=== PATIENT | female | born 1990 | race Caucasian/White ===

== ENCOUNTER 2018-07-19 22:00 | Emergency (ER) | payer BC, OTHER ==
[2018-07-19] MEDS ORDERED: Cyclobenzaprine 10 MG Tab PO ONE (22:01)
[2018-07-19] MEDS ORDERED: Acetaminophen/oxyCODONE 325-5 MG Tab PO ONE ×2 (22:01)
--- NOTE | 2018-07-19 22:25 | EDM.PDOC ---
ED HPI GENERAL MEDICAL PROBLEM - General Chief Complaint: Back Pain or Injury Stated Complaint: BACK PAIN [id number] Time Seen by Provider: 07/19/18 22:15 Source of Information: Reports: Patient, RN, RN Notes Reviewed History Limitations: Reports: No Limitations - History of Present Illness INITIAL COMMENTS - FREE TEXT/NARRATIVE: Pt to ER with c/o pain to the right mid back, under the rib cage. She states she bent over this morning and had a sudden, sharp pain. She states the pain is worse with deep breathing and movement. She states she has tried to stretch, but this is painful. She states she gets nauseated at times with the pain, and her body is shaking with pain. Patient denies fever, vomiting. She denies urgency or burning with urination. She states some frequency but she states she had a baby about 7 months ago and this has been normal since then. She states she does carry around a 17 pound baby, but no other lifting, shoveling, repetitive movement. She states there is history of kidney stones in her family. Rates pain 12/14. Onset: Today, Sudden Duration: Getting Worse Location: Reports: Back Quality: Reports: Ache, Sharp, Stabbing Severity: Moderate Improves with: Reports: None Right Flank Pain Score (Numeric/FACES): 7 - Related Data Home Meds: Home Meds IKT320/Iron Fumarate/FA/DSS [ 19 Tablet] 1 each PO 07/19/18 [History] ED ROS GENERAL - Review of Systems Review Of Systems: ROS reveals no pertinent complaints other than HPI. ED EXAM,LOWER BACK PAIN/INJURY - Physical Exam Exam: See Below Exam Limited By: No Limitations General Appearance: Alert, WD/WN, Moderate Distress Eye Exam: Bilateral Eye: EOMI, Normal Inspection Ears: Normal External Exam, Hearing Grossly Normal Nose: Normal Inspection Throat/Mouth: Normal Inspection, Normal Voice, No Airway Compromise Head: Atraumatic, Normocephalic Neck: Normal Inspection, Supple, Non-Tender, Full Range of Motion Respiratory/Chest: No Respiratory Distress, Lungs Clear, Normal Breath Sounds, No Accessory Muscle Use, Chest Non-Tender Cardiovascular: Normal Peripheral Pulses, Regular Rate, Rhythm, No Edema, No Gallop, No JVD, No Murmur, No Rub GI/Abdominal: Normal Bowel Sounds, Soft, Non-Tender, No Organomegaly, No Distention, No Abnormal Bruit, No Mass, Pelvis Stable (Female) Exam: Deferred Rectal (Female) Exam: Deferred Back Exam: Normal Inspection, Decreased Range of Motion, Muscle Spasm, Paraspinal Tenderness Extremities: Normal Inspection, Normal Range of Motion, Non-Tender, No Pedal Edema, Normal Capillary Refill Neurological: Alert, Normal Mood/Affect, Normal Dorsiflexion, CN II-XII Intact, Normal Plantar Flexion, Normal Gait, Normal Reflexes, No Motor/Sensory Deficits , Oriented x 3 Psychiatric: Anxious, Tearful Skin Exam: Warm, Dry, Intact, Normal Color, No Rash Lymphatic: No Adenopathy Course - Vital Signs Last Recorded V/S: Last Vital Signs Temp 97.6 F 07/19/18 22:17 Pulse 78 07/19/18 22:17 Resp 16 07/19/18 22:17 BP 128/74 07/19/18 22:17 Pulse Ox 99 07/19/18 22:17 - Orders/Labs/Meds Orders: Active Orders 24 hr Category Date Time Status CULTURE URINE [RM] Stat Lab 07/19/18 22:27 Received Orphenadrine [Norflex] Med 07/19/18 22:45 Active 60 mg IM Q12H Medication Orders Orphenadrine Citrate (Norflex) 60 mg IM Q12H MOLINA Last Admin: 07/19/18 22:45 Dose: 60 mg Labs: Laboratory Tests 07/19/18 07/19/18 Range/Units 22:27 22:27 Urine Color Yellow (YELLOW) Urine Appearance Slightly cloudy (CLEAR) Urine pH 5.5 (5.0-9.0) Ur Specific [place] 1.010 (1.005-1.030) Urine Protein Negative (NEGATIVE) Urine Glucose (UA) Negative (NEGATIVE) Urine Ketones Negative (NEGATIVE) Urine Occult Blood Moderate H (NEGATIVE) Urine Nitrite Negative (NEGATIVE) Urine Bilirubin Negative (NEGATIVE) Urine Urobilinogen 0.2 (0.2-1.0) mg/dL Ur Leukocyte Esterase Trace H (NEGATIVE) Urine RBC 40-50 H /HPF Urine WBC 5-10 H (0-5/HPF) /HPF Ur Epithelial Cells Few /HPF Urine Bacteria Few (0-FEW/HPF) /HPF Urine Mucus Rare /LPF Urine HCG, Qual Negative Meds: Medications Generic Name Dose Route Start Last Admin Trade Name Freq PRN Reason Stop Dose Admin Orphenadrine Citrate 60 mg 07/19/18 22:45 07/19/18 22:45 Norflex IM 60 mg Q12H MOLINA Administration Departure - Departure Time of Disposition: 23:30 Disposition: Home, Self-Care 01 Condition: Fair Clinical Impression: Muscle spasm - Discharge Information *PRESCRIPTION DRUG MONITORING PROGRAM REVIEWED*: No *COPY OF PRESCRIPTION DRUG MONITORING REPORT IN PATIENT VASHTI: No Instructions: Muscle Strain, [id number], Heat Therapy, [id number], Back Pain, Adult, [id number], Muscle Cramps and Spasms, [id number] Forms: ED Department Discharge Additional Instructions: Drink plenty of water RX: Flexeril, Norflex Take Ibuprofen as directed for pain Follow up with your primary care facility may use heat to the area as tolerated - My Orders Last 24 Hours: My Active Orders 07/19/18 22:27 CULTURE URINE [RM] Stat 07/19/18 22:45 Orphenadrine [Norflex] 60 mg IM Q12H - Assessment/Plan Last 24 Hours: My Active Orders 07/19/18 22:27 CULTURE URINE [RM] Stat 07/19/18 22:45 Orphenadrine [Norflex] 60 mg IM Q12H
[2018-07-20] MEDS: Acetaminophen/oxyCODONE 325-5 MG Tab ONE (00:01)
[2018-07-20] MEDS: Cyclobenzaprine 10 MG Tab ONE (00:01)
== END 2018-07-20 00:05 | disposition home or self-care (01) ==
LOC: DL.ED 22:00
DX: M62.838 Other muscle spasm (principal)
CPT/HCPCS: 81001; 81025; 87086; 96372; 99284; A9270; J2360

== ENCOUNTER 2018-07-20 15:45 | Emergency (ER) | payer BC ==
[2018-07-20] MEDS: Sodium Chloride 0.9% 1,000 ML IV ONE (16:10)
[2018-07-20 16:26] LABS: ANION GAP 12.8; CHLORIDE,CL 102 mmol/L (101-111); SODIUM,NA 133 mmol/L (135-145)
--- NOTE | 2018-07-20 17:01 | EDM.PDOC ---
Scribed by Neeta Mejia 07/20/18 [id number] for Luiz Dawson PA ED HPI GENERAL MEDICAL PROBLEM - General Chief Complaint: Back Pain or Injury Stated Complaint: BACK PAIN,LOW BLOOD PRESSURE Time Seen by Provider: 07/20/18 16:00 Source of Information: Reports: Patient, RN, RN Notes Reviewed History Limitations: Reports: No Limitations - History of Present Illness INITIAL COMMENTS - FREE TEXT/NARRATIVE: Patient presents to ER with increased right side pain that started yesterday morning. She was seen last night in ED and given Norflex in ED. She was sent home with Flexeril and Percocet. She took her last Percocet at 1145 today. She has had several syncopal episodes before appointment with [facility]. She had a previous episode after a spinal. She has back pain. She is having her menstrual cycle now. Onset Date: 07/19/18 Duration: Constant Location: Reports: Back Quality: Reports: Ache Severity: Moderate Improves with: Reports: None Worsens with: Reports: Movement Associated Symptoms: Reports: No Other Symptoms - Related Data Allergies Allergy/AdvReac Type Severity Reaction Status Date / Time nickel Allergy Hives Verified 07/20/18 16:24 Home Meds: Home Meds CPC702/Iron Fumarate/FA/DSS [ 19 Tablet] 1 each PO DAILY 07/19/18 [ History] Acetaminophen/oxyCODONE [Percocet 325-5 MG] 1 tab PO Q6H 07/20/18 [History] Cholecalciferol (Vitamin D3) [Vitamin D] 5,000 unit PO DAILY 07/20/18 [History] Cyclobenzaprine [Flexeril] 10 mg PO DAILY 07/20/18 [History] Ibuprofen [Motrin] 800 mg PO Q8H 07/20/18 [History] Past Medical History - Past Health History Medical/Surgical History: Denies Medical/Surgical History Social & Family History - Family History Family Medical History: Noncontributory - Caffeine Use Caffeine Use: Reports: None ED ROS GENERAL - Review of Systems Review Of Systems: ROS reveals no pertinent complaints other than HPI. ED EXAM,LOWER BACK PAIN/INJURY - Physical Exam Exam: See Below Exam Limited By: No Limitations General Appearance: Alert, WD/WN, No Apparent Distress Eye Exam: Bilateral Eye: EOMI, Normal Inspection, PERRL Ears: Normal External Exam, Normal Canal, Hearing Grossly Normal, Normal TMs Nose: Normal Inspection, Normal Mucosa, No Blood Throat/Mouth: Normal Inspection, Normal Lips, Normal Teeth, Normal Gums, Normal Oropharynx, Normal Voice, No Airway Compromise Head: Atraumatic, Normocephalic Neck: Normal Inspection, Supple, Non-Tender, Full Range of Motion Respiratory/Chest: No Respiratory Distress, Lungs Clear, Normal Breath Sounds, No Accessory Muscle Use, Chest Non-Tender Cardiovascular: Normal Peripheral Pulses, Regular Rate, Rhythm, No Edema, No Gallop, No JVD, No Murmur, No Rub GI/Abdominal: Normal Bowel Sounds, Soft, Non-Tender, No Organomegaly, No Distention, No Abnormal Bruit, No Mass (Female) Exam: Deferred Rectal (Female) Exam: Deferred Back Exam: Other (Back pain right worse than left. ) Extremities: Normal Inspection, Normal Range of Motion, Non-Tender, No Pedal Edema, Normal Capillary Refill Neurological: Alert, Normal Mood/Affect, Normal Dorsiflexion, CN II-XII Intact, Normal Plantar Flexion, Normal Gait, Normal Reflexes, No Motor/Sensory Deficits , Oriented x 3 Skin Exam: Warm, Dry, Intact, Normal Color, No Rash Course - Vital Signs Last Recorded V/S: Last Vital Signs Temp 36.9 C 07/20/18 16:22 Pulse 57 L 07/20/18 16:22 Resp 16 07/20/18 16:22 BP 115/73 07/20/18 16:22 Pulse Ox 100 07/20/18 16:22 - Orders/Labs/Meds Orders: Active Orders 24 hr Category Date Time Status EKG Documentation Completion [RC] URGENT Care 07/20/18 16:06 Active Labs: Laboratory Tests 07/20/18 07/20/18 Range/Units 15:57 15:57 WBC 9.5 (5.0-10.0) 10^3/uL RBC 4.53 (4.2-5.4) 10^6/uL Hgb 14.0 (12.0-16.0) g/dL Hct 42.1 (37.0-47.0) % MCV 92.9 (80-100) fL MCH 30.9 (27.0-34.0) pg MCHC 33.3 (33.0-35.0) g/dL Plt Count 289 (150-450) 10^3/uL Neut % (Auto) 68.3 (42.2-75.2) % Lymph % (Auto) 21.9 (20.5-50.1) % Kay % (Auto) 7.9 (2-8) % Eos % (Auto) 1.5 (1.0-3.0) % Baso % (Auto) 0.4 (0.0-1.0) % Sodium 133 L (135-145) mmol/L Potassium 3.8 (3.6-5.0) mmol/L Chloride 102 (101-111) mmol/L Carbon Dioxide 22.0 (21.0-31.0) mmol/L Anion Gap 12.8 BUN 12 (7-18) mg/dL Creatinine 0.7 (0.6-1.3) mg/dL Est Cr Clr Drug Dosing 123.93 mL/min Estimated GFR (MDRD) > 60 BUN/Creatinine Ratio 17.14 Glucose 100 (74-105) mg/dL Calcium 8.7 (8.4-10.2) mg/dl Total Bilirubin 1.0 (0.2-1.0) mg/dL AST 22 (10-42) IU/L ALT 13 (10-60) IU/L Alkaline Phosphatase 50 (42-121) IU/L Troponin I < 0.02 (0.00-0.02) ng/ml Total Protein 7.5 (6.7-8.2) g/dl Albumin 4.0 (3.2-5.5) g/dl Globulin 3.5 Albumin/Globulin Ratio 1.14 Meds: Medications Discontinued Medications Generic Name Dose Route Start Last Admin Trade Name Freq PRN Reason Stop Dose Admin Sodium Chloride 1,000 mls @ 999 mls/hr 07/20/18 16:00 07/20/18 16:10 Normal Saline IV 07/20/18 17:00 999 mls/hr .BOLUS ONE Administration Methylprednisolone Sodium Succinate 40 mg 07/20/18 17:45 Solu-Medrol IVPUSH 07/20/18 17:46 ONETIME ONE - Re-Assessments/Exams Free Text/Narrative Re-Assessment/Exam: 07/20/18 17:[address] was ordered for the patient, but the patient did not want to go to CT without all labs being reported to her. The patient was given the lab results and agreed to go to have a CT scan. 07/20/18 17:47 CT results were received from Dr. Rodriguez. No kidney stones, no apparent bulging discs, no spinal abnormalities. Normal CT of the abdomen and pelvis. Departure - Departure Time of Disposition: 17:48 Disposition: Home, Self-Care 01 Condition: Fair Clinical Impression: Low back strain Qualifiers: Encounter type: initial encounter Qualified Code(s): S39.012A - Strain of muscle, fascia and tendon of lower back, initial encounter - Discharge Information *PRESCRIPTION DRUG MONITORING PROGRAM REVIEWED*: Not Applicable *COPY OF PRESCRIPTION DRUG MONITORING REPORT IN PATIENT VASHTI: Not Applicable Instructions: Muscle Strain, [id number], Back Pain, Adult, [id number]-[id number] Forms: ED Department Discharge Care Plan Goals: The patient was advised of the examination, lab and CT results during the visit. The patient was given IV fluids and an IV dose of SoluMedrol during the visit in the ED. The patient was encouraged to avoid taking the pain medications and the muscle relaxers. The patient was discharged with a script for Prednisone (20 mg) #10 to take 2 by mouth daily for 5 days. If the patient has any additional symptoms or concerns, the patient should either visit her primary care facility or return to the emergency department. - My Orders Last 24 Hours: My Active Orders 07/20/18 16:06 EKG Documentation Completion [RC] URGENT - Assessment/Plan Last 24 Hours: My Active Orders 07/20/18 16:06 EKG Documentation Completion [RC] URGENT I have read and agree with the documentation that has been completed regarding this visit. By signing this record, I attest that the documentation was completed in my physical presence and is an accurate record of the encounter.
--- NOTE | 2018-07-20 17:42 | CT ---
Clinical history: 27-year-old female with menses and "hematuria" complaining of low back pain (right greater than left). Scan technique: Volume acquisition of data emergency unenhanced CT scan of the abdomen and pelvis (kidneys/ureters/bladder) obtained while the patient was lying supine on the Siemens multislice scanner [place], [place]. All data archived in the PACS system for storage, reformatting axial/sagittal/coronal planes and study. Interpretation: 1. Normal appendix identified RLQ (all planes). No calcified appendicoliths, inflammatory mass, periappendiceal inflammation. 2. Homogeneous normal bone density and normal height/alignment of the lumbar vertebra. No current evidence lumbar disc disease or hypertrophic arthritis. No lumbar fracture or spondylolisthesis (dislocation). 3. Normal caliber aortoiliac vessels. No aneurysm or retroperitoneal periaortic dissection. 4. Gallbladder, unenhanced liver, stomach, spleen and pancreas unremarkable. 5. Symmetric normal-appearing kidneys without sign of nephrolithiasis or significant pyelocaliectasis/ureterectasis. Punctate phlebolith-like radiopacities lower pelvis, on the left. Symmetrically distended urinary bladder without intraluminal calculus. 6. Anteverted uterus midline and unremarkable. No pelvic or abdominal mass lesion. 7. Lung bases clear. CONCLUSION: Negative exam.
[2018-07-20] MEDS: methylPREDNISolone Sodium Succinate 40 MG/1 ML SDV IVPUSH ONE (18:00)
== END 2018-07-20 18:20 | disposition home or self-care (01) ==
LOC: DL.ED 15:45
DX: S39.012A Strain of muscle, fascia and tendon of lower back, initial encounter (principal); Z91.09 Other allergy status, other than to drugs and biological substances; X58.XXXA Exposure to other specified factors, initial encounter
CPT/HCPCS: 36415; 74176; 80053; 84484; 85025; 93005; 96361; 96374; 99284; J2920; J7030

== ENCOUNTER 2020-10-13 07:54 | Emergency (ER) | payer BC ==
--- NOTE | 2020-10-13 08:07 | EDM.PDOC ---
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 0700HRS this morning. Pt states she is approx. 6 weeks . She denies pain at this time. Bleeding has been light with passage of one clot and some mucus covered blood or tissue. Onset: Today Duration: Constant Location: Reports: Other ( related) Quality: Reports: Other (Cramps) Severity: Mild Improves with: Reports: None Worsens with: Reports: None Associated Symptoms: Reports: No Other Symptoms - Related Data Allergies Allergy/AdvReac Type Severity Reaction Status Date / Time nickel Allergy Hives Verified 07/20/18 16:24 Home Meds: Home Meds Prenat 115/Iron Fum/Folic/Dss [ 19 Tablet] 1 each PO DAILY 07/19/18 [History] Past Medical History - Past Health History Medical/Surgical History: Denies Medical/Surgical History HEENT History: Reports: Impaired Vision Cardiovascular History: Reports: None Respiratory History: Reports: None Gastrointestinal History: Reports: None Genitourinary History: Reports: None 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: Musculoskeletal History: Reports: None Neurological History: Reports: None Psychiatric History: Reports: None Endocrine/Metabolic History: Reports: None Hematologic History: Reports: None Immunologic History: Reports: None Oncologic (Cancer) History: Reports: None Dermatologic History: Reports: None - Infectious Disease History Infectious Disease History: Reports: None - Past Surgical History Head Surgeries/Procedures: Reports: None Social & Family History - Family History Family Medical History: No Pertinent Family History - Caffeine Use Caffeine Use: Reports: None - Living Situation & Occupation Living situation: Reports: , with Family ED ROS GENERAL - Review of Systems Review Of Systems: Comprehensive ROS is negative, except as noted in HPI. ED EXAM - Physical Exam Exam: See Below Exam Limited By: No Limitations General Appearance: Alert, WD/WN, No Apparent Distress Throat/Mouth: Normal Inspection Head: Atraumatic, Normocephalic Neck: Normal Inspection Respiratory/Chest: No Respiratory Distress, Lungs Clear, Normal Breath Sounds, No Accessory Muscle Use, Chest Non-Tender Cardiovascular: Normal Peripheral Pulses, Regular Rate, Rhythm, No Edema, No Gallop, No JVD, No Murmur, No Rub GI/Abdominal Exam: Normal Bowel Sounds, Soft, Non-Tender, No Organomegaly, No Distention, No Abnormal Bruit, No Mass, Pelvis Stable Rectal Exam: Deferred (Female) Exam: Other (Deferred) Back Exam: Normal Inspection Extremities: Normal Inspection, Normal Range of Motion, Non-Tender, No Pedal Edema, Normal Capillary Refill. No: Daya's Sign Neurological: Alert, Oriented, CN II-XII Intact, Normal Cognition, Normal Gait, No Motor/Sensory Deficits Psychiatric: Normal Affect, Normal Mood Skin Exam: Warm, Dry, Intact, Normal Color, No Rash Course - Vital Signs Last Recorded V/S: Last Vital Signs Temp 98 F 10/13/20 08:10 Pulse 70 10/13/20 08:10 Resp 18 10/13/20 08:10 BP 118/72 10/13/20 08:10 Pulse Ox 100 10/13/20 08:10 - Orders/Labs/Meds Orders: Active Orders 24 hr Category Date Time Status RH IMMUNE GLOBULIN [BBK] Stat Lab 10/13/20 08:15 Results RHOGAM, MISCARRIAGE [RHIG WORKUP, MISCARRIAGE] [BBK] Lab 10/13/20 08:15 Results Stat RHOGAM given in ER. Labs: Laboratory Tests 10/13/20 10/13/20 10/13/20 Range/Units 08:15 08:15 08:15 WBC 8.4 (5.0-10.0) 10^3/uL RBC 4.41 (4.2-5.4) 10^6/uL Hgb 13.5 (12.0-16.0) g/dL Hct 41.0 (37.0-47.0) % MCV 93.0 (80-100) fL MCH 30.6 (27.0-34.0) pg MCHC 32.9 L (33.0-35.0) g/dL Plt Count 315 (150-450) 10^3/uL Neut % (Auto) 65.1 (42.2-75.2) % Lymph % (Auto) 26.8 (20.5-50.1) % [place] % (Auto) 6.6 (2-8) % Eos % (Auto) 1.0 (1.0-3.0) % Baso % (Auto) 0.5 (0.0-1.0) % HCG, Quant 154 H (0-6) mIU/mL Urine Color (YELLOW) Urine Appearance (CLEAR) Urine pH (5.0-9.0) Ur Specific [place] (1.005-1.030) Urine Protein (NEGATIVE) Urine Glucose (UA) (NEGATIVE) Urine Ketones (NEGATIVE) Urine Occult Blood (NEGATIVE) Urine Nitrite (NEGATIVE) Urine Bilirubin (NEGATIVE) Urine Urobilinogen (0.2-1.0) mg/dL Ur Leukocyte Esterase (NEGATIVE) Urine RBC /HPF Urine WBC (0-5/HPF) /HPF Ur Epithelial Cells (NOT SEEN) /HPF Urine Bacteria (0-FEW/HPF) /HPF Blood Type (Referred) Blood Type O NEGATIVE Rhogam Indicated Blood Bank Comment 10/13/20 10/13/20 Range/Units 08:15 08:33 WBC (5.0-10.0) 10^3/uL RBC (4.2-5.4) 10^6/uL Hgb (12.0-16.0) g/dL Hct (37.0-47.0) % MCV (80-100) fL MCH (27.0-34.0) pg MCHC (33.0-35.0) g/dL Plt Count (150-450) 10^3/uL Neut % (Auto) (42.2-75.2) % Lymph % (Auto) (20.5-50.1) % [place] % (Auto) (2-8) % Eos % (Auto) (1.0-3.0) % Baso % (Auto) (0.0-1.0) % HCG, Quant (0-6) mIU/mL Urine Color Yellow (YELLOW) Urine Appearance Slightly cloudy (CLEAR) Urine pH 7.0 (5.0-9.0) Ur Specific [place] 1.015 (1.005-1.030) Urine Protein Negative (NEGATIVE) Urine Glucose (UA) Negative (NEGATIVE) Urine Ketones Negative (NEGATIVE) Urine Occult Blood Large H (NEGATIVE) Urine Nitrite Negative (NEGATIVE) Urine Bilirubin Negative (NEGATIVE) Urine Urobilinogen 0.2 (0.2-1.0) mg/dL Ur Leukocyte Esterase Negative (NEGATIVE) Urine RBC 30-40 H /HPF Urine WBC 0-5 (0-5/HPF) /HPF Ur Epithelial Cells Few (NOT SEEN) /HPF Urine Bacteria Rare (0-FEW/HPF) /HPF Blood Type (Referred) O neg Blood Type Rhogam Indicated Yes Blood Bank Comment Dln - Radiology Interpretation Free Text/Narrative:: [facility] [place] [facility] Final Radiology Report Call: [phone] assistance Online chat: [email or web address] Name: SHARON GOMEZ Age: 29Years F Date: 10/13/2020 SSN: -- : [id number] Study: US OB 1ST TRI SGL 1ST GEST Requesting Physician: CAMILLE ESQUIVEL Images: 19 Addl Studies: Provided Clinical History: Vag. bleeding, LMP 09/01/20, ,0-0, L2 Contrast: Without Contrast Medium: Contrast Amount: Contrast Method: Page 1 of 2 PROCEDURE INFORMATION: Exam: US , Transvaginal Exam date and time: 10/13/2020 8:53 AM Age: 29 years old Clinical indication: Lmp or gestational age (in weeks): N/a; Antepartum complications; Bleeding; Patient HX: PT states she had a pos home preg test in September 2020. ; Additional info: Vag. Bleeding, lmp 09/01/20, ,0-0, l2 TECHNIQUE: Imaging protocol: Real-time transvaginal obstetrical ultrasound of the maternal pelvis with image documentation. Transvaginal imaging was used for better evaluation of the fetus, adnexa, and/or cervix. COMPARISON: No relevant prior studies available. FINDINGS: Gestation: No intrauterine gestational sac. MATERNAL: Right adnexa: Right ovary measures 2.7 x 2.0 x 2.7 cm. Left adnexa: Left ovary measures 2.6 x 1.9 x 2.2 cm. IMPRESSION: 1. No intrauterine gestational sac. 2. Findings consistent with either complete AB, very early IUP, or ectopic . Recommend serial serum hCG levels for further evaluation. Thank you for allowing us to participate in the care of your patient. SHARON GOMEZ | Final Radiology Report CONFIDENTIALITY STATEMENT This report is intended only for use by the referring physician, and only in accordance with law. If you received this in error, call [phone]. Page 2 of 2 Dictated and Authenticated by: Jermain Kincaid MD 10/13/2020 9:37 AM Central Time ([place] & [place]) Departure - Departure Time of Disposition: 10:00 Disposition: Home, Self-Care 01 Condition: Good Clinical Impression: Spontaneous miscarriage, Complete - Discharge Information *PRESCRIPTION DRUG MONITORING PROGRAM REVIEWED*: Not Applicable *COPY OF PRESCRIPTION DRUG MONITORING REPORT IN PATIENT VASHTI: Not Applicable Instructions: Miscarriage Forms: ED Department Discharge Additional Instructions: Activity as tolerated. Pelvic rest: no tampons, douche, or sexual activity until rechecked by your ivf embryologist physician. Return to ER if you develop severe pain, fever, or heavy vaginal bleeding (completely soaking 1 large pad per hour for 2 or more hours). Follow up in clinic in this week for recheck. Inform your physician of the RhoGAM injection you received due to having blood type O-Negative. Sepsis Event Note (ED) - Focused Exam Vital Signs: Vital Signs Temp Pulse Resp BP Pulse Ox 10/13/20 08:10 98 F 70 18 118/72 100 - My Orders Last 24 Hours: My Active Orders 10/13/20 08:15 RH IMMUNE GLOBULIN [BBK] Stat RHOGAM, MISCARRIAGE [RHIG WORKUP, MISCARRIAGE] [BBK] Stat - Assessment/Plan Last 24 Hours: My Active Orders 10/13/20 08:15 RH IMMUNE GLOBULIN [BBK] Stat RHOGAM, MISCARRIAGE [RHIG WORKUP, MISCARRIAGE] [BBK] Stat"
--- NOTE | 2020-10-13 09:37 | US ---
PROCEDURE INFORMATION: Exam: US , Transvaginal Exam date and time: 10/13/2020 8:53 AM Age: 29 years old Clinical indication: Lmp or gestational age (in weeks): N/a; Antepartum complications; Bleeding; Patient HX: PT states she had a pos home preg test in September 2020. ; Additional info: Vag. Bleeding, lmp 09/01/20, ,0-0, l2 TECHNIQUE: Imaging protocol: Real-time transvaginal obstetrical ultrasound of the maternal pelvis with image documentation. Transvaginal imaging was used for better evaluation of the fetus, adnexa, and/or cervix. COMPARISON: No relevant prior studies available. FINDINGS: Gestation: No intrauterine gestational sac. MATERNAL: Right adnexa: Right ovary measures 2.7 x 2.0 x 2.7 cm. Left adnexa: Left ovary measures 2.6 x 1.9 x 2.2 cm. IMPRESSION: 1. No intrauterine gestational sac. 2. Findings consistent with either complete AB, very early IUP, or ectopic . Recommend serial serum hCG levels for further evaluation.
== END 2020-10-13 10:02 | disposition home or self-care (01) ==
LOC: DL.ED 07:54
DX: O03.9 Complete or unspecified spontaneous abortion without complication (principal); Z91.048 Other nonmedicinal substance allergy status
CPT/HCPCS: 36415; 76801; 76817; 81001; 84702; 85025; 86900; 86901; 99284; 99284-25; J2790